=== PATIENT | male | born 1975 | race Caucasian/White ===

== ENCOUNTER 2023-04-10 19:48 | Emergency (ER) | payer BC ==
[~2023-04-10] VITALS: Ht 188 cm; Wt 117.9 kg
[~2023-04-10 19:48] MED LIST: AMLO10 PO; CYCL10 PO; LISI20 PO; Norco 5-325 Ta1 EACH PO; Valium5 MG PO
[2023-04-10 20:42] LABS: BASOPHILS ABSOLUTE AUTO 0.07 K/mm3 (0.00-0.23); BASOPHILS PERCENT AUTO 0 % (0-2); EOSINOPHILS ABSOLUTE AUTO 0.14 K/mm3 (0.00-0.68); EOSINOPHILS PERCENT AUTO 1 % (0-6); Hematocrit 44.8 % (37.0-53.0); Hemoglobin 15.9 g/dL (13.5-17.5); IMMATURE GRAN ABSOLUTE AUTO 0.08 K/mm3 (0.00-0.10); IMMATURE GRAN PERCENT AUTO 1 % (0-1); LYMPHOCYTES PERCENT AUTO 10 % (21-46); MONOCYTES ABSOLUTE AUTO 1.93 K/mm3 (0.16-1.47); MONOCYTES PERCENT AUTO 12 % (4-13); Mean Corpuscular HGB 29.9 pg (26.0-34.0); Mean Corpuscular HGB Conc 35.5 g/dL (31.5-36.5); Mean Corpuscular Volume 84 fL (80-100); Mean Platelet Volume 10.1 fL (9.1-12.4); NEUTROPHILS ABSOLUTE AUTO 12.47 K/mm3 (1.96-9.15); NEUTROPHILS PERCENT AUTO 77 % (41-73); Platelet Count 262 K/mm3 (150-400); RDW Coefficient Variation 12.8 % (11.7-14.2); RDW Standard Deviation 38.7 fL (35.1-46.3); Red Blood Cell Count 5.32 M/mm3 (4.30-5.90); White Blood Cell Count 16.29 K/mm3 (4.00-11.30)
[2023-04-10 21:02] LABS: Albumin, Blood 3.9 g/dL (3.4-5.0); Bilirubin, Total 0.5 mg/dL (0.1-1.0); Bun/Creatinine Ratio 15.8 (12.0-20.0); Calcium, Blood 10.2 mg/dL (8.5-10.1); Creatinine, Blood 0.82 mg/dL (0.60-1.20); Globulin, Blood 3.8 g/dL (2.2-4.0); Potassium, Blood 3.8 mmol/L (3.5-5.5); Total Protein, Blood 7.7 g/dL (6.4-8.2)
[2023-04-11] MEDS ORDERED: HYDCHL25 PO (00:11)
[2023-04-11 01:15] VITALS: BP 112/63
== END 2023-04-11 01:37 | disposition home or self-care (01) ==
LOC: ER 19:48
PROVIDERS: Physician Assistant
DX: R10.11 Right upper quadrant pain (principal); I10 Essential (primary) hypertension; J45.909 Unspecified asthma, uncomplicated; Z79.899 Other long term (current) drug therapy
CPT/HCPCS: 76705; 80053; 83690; 84484; 85025; 93005; 93010; 96374; 96375; 99284-25; J1885; J2405

== ENCOUNTER 2023-11-02 12:05 | Observation (INO) | payer BC ==
[2023-11-02] VITALS (13 sets, daily range): BP systolic 129–156; BP diastolic 76–110
[~2023-11-02] VITALS: Ht 188 cm; Wt 120.2 kg
[~2023-11-02 12:05] MED LIST changes: -ALBU90OI INH; -AMOCLA875 PO
[2023-11-02] MEDS ORDERED: Ondansetron 4 MG SoluTab MM ONE (12:50)
[2023-11-02] MEDS ORDERED: Ampicillin Sod/Sulbactam Sod 3 GM in NS 100 ML IV ONE (13:20)
[2023-11-02] MEDS ORDERED: Lactated Ringer's 1,000 ML IV SCH ×3 (13:30→16:25)
[2023-11-02] MEDS ORDERED: ALBU90OI INH ×2 (14:45)
[2023-11-02] MEDS ORDERED: Bupivacaine 0.5% HCl 5 MG/ML 30MLVIAL ONE (14:49)
[2023-11-02] MEDS ORDERED: FentaNYL Citrate 50 MCG/ML 2 ML Injection ONE ×2 (15:07→16:21)
[2023-11-02] MEDS ORDERED: Ketorolac Tromethamine 30mg Vial ONE (15:07)
[2023-11-02] MEDS ORDERED: Dexamethasone Sod Phos 10 MG/ML 1ML VIAL ONE (15:07)
[2023-11-02] MEDS ORDERED: propofoL 20 ML IV ONE (15:07)
[2023-11-02] MEDS ORDERED: Ondansetron HCl 2 MG / ML 2ML Vial ONE (15:07)
[2023-11-02] MEDS ORDERED: Rocuronium Bromide 10 MG/ML 5ML Injection IV ONE ×2 (15:07→15:54)
[2023-11-02] MEDS ORDERED: Droperidol 5 mg/2 ml Vial IV PRN (15:15)
[2023-11-02] MEDS ORDERED: HYDROmorphone HCl/Pf 1MG SYR IV PRN (15:20)
[2023-11-02] MEDS ORDERED: FentaNYL Citrate 50 MCG/ML 2 ML Injection IV PRN (15:20)
[2023-11-02] MEDS ORDERED: Albuterol 2.5 MG/3 ML VIAL INH PRN (15:20)
[2023-11-02] MEDS ORDERED: Ondansetron HCl 2 MG / ML 2ML Vial IV PRN (15:40)
[2023-11-02] MEDS ORDERED: HYDROcodone 5-APAP 325 TAB PO PRN (15:40)
[2023-11-02] MEDS ORDERED: FLU VACC QS2023-24(6MOS UP)/PF 60 MCG/0.5 ML SYRINGE IM ONE (15:40)
[2023-11-02] MEDS ORDERED: Phenylephrine HCl 100 MCG/ML-NS 10MLSYR (1MG/10ML) ONE (16:00)
[2023-11-02] MEDS ORDERED: Sugammadex Sodium 200 MG/2ML SDV (100 MG/ML) ONE (16:07)
[2023-11-02] MEDS ORDERED: Albuterol 2.5 MG/3 ML VIAL ONE (16:39)
[2023-11-02] MEDS ORDERED: Ampicillin Sod/Sulbactam Sod 3 GM in NS 100 ML IV SCH (18:00)
[2023-11-02] MEDS ORDERED: NS 100 ML IV ONE (19:00)
--- NOTE | 2023-11-02 19:24 | NUR ---
SHIFT SUMMARY PT A&OX4, VSS/RA, MAYELA PO CLD, AMB SBA, VOIDING, PAIN MANAGED, IVF/ABX PER EMAR. WILL REPORT TO ONCOMING NOC PAUL.
[2023-11-03 03:09] VITALS: BP 135/90
--- NOTE | 2023-11-03 04:30 | NUR ---
SHIFT SUMMARY POD #1 LAP APPY A&O X4, VSS, ON RA, INDEPENDENT IN ROOM, TOLERATING PO INTAKE, VOIDING WNL, PASSING GAS, PAIN WNL, LAP SITES C/D/I, INCENTIVE SPIROMETER USE ENC/DEMONSTRATED, RESTING QUIETLY IN BED, RESP UNLABORED, CALL LIGHT IN REACH
[2023-11-03 08:09] VITALS: BP 142/93
[2023-11-03] MEDS ORDERED: Lisinopril 20 MG Tab PO SCH (09:00)
[2023-11-03] MEDS ORDERED: AMOCLA875 PO ×2 (11:34)
--- NOTE | 2023-11-03 11:48 | NUR ---
PRESCRIPTION CALLED TO [facility] PER PT REQUEST.
--- NOTE | 2023-11-03 12:07 | NUR ---
DISCHARGE POD 1 LAP APPY PT TOLERATING DIET WELL, NO NAUSEA OR VOMITING. DENIES PAIN DURING SHIFT. REPORTS PASSING FLATUS AND SMALL BM. ALL INSTRUCTIONS GONE OVER WITH PATIENT. ALL QUESTIONS ANSWERED. PT DECLINED WHEELCHAIR AND AMBULATED OUT WELL.
== END 2023-11-03 12:14 | disposition home or self-care (01) ==
LOC: ER 12:05 → SURS 12:06 → ER 13:00 → SURS 15:44
PROVIDERS: ADMIT Surgery
PROC: 0DTJ0ZZ Resection of Appendix, Open Approach (ICD-10-PCS; principal; 2023-11-02 13:00)
DX: K35.80 Unspecified acute appendicitis (principal); I10 Essential (primary) hypertension; J45.909 Unspecified asthma, uncomplicated; Z79.899 Other long term (current) drug therapy
CPT/HCPCS: 96365; 99284-25; A9270; J0295; J1100; J1885; J2371; J2405; J2704; J3010; J7120

== ENCOUNTER → 2023-11-02 | Outpatient (CLI) | payer BC ==
[~2023-11-02] MED LIST changes: +ALBU90OI INH; +AMOCLA875 PO; +HYDCHL25 PO
[2023-11-02 10:34] LABS: BASOPHILS ABSOLUTE AUTO 0.06 K/mm3 (0.00-0.23); BASOPHILS PERCENT AUTO 0 % (0-2); EOSINOPHILS ABSOLUTE AUTO 0.04 K/mm3 (0.00-0.68); EOSINOPHILS PERCENT AUTO 0 % (0-6); Hemoglobin 16.9 g/dL (13.5-17.5); IMMATURE GRAN ABSOLUTE AUTO 0.08 K/mm3 (0.00-0.10); IMMATURE GRAN PERCENT AUTO 0 % (0-1); LYMPHOCYTES ABSOLUTE AUTO 1.54 K/mm3 (0.84-5.20); LYMPHOCYTES PERCENT AUTO 9 % (21-46); MONOCYTES ABSOLUTE AUTO 1.63 K/mm3 (0.16-1.47); MONOCYTES PERCENT AUTO 9 % (4-13); Mean Corpuscular HGB 29.6 pg (26.0-34.0); Mean Corpuscular HGB Conc 34.5 g/dL (31.5-36.5); Mean Corpuscular Volume 86 fL (80-100); Mean Platelet Volume 10.5 fL (9.1-12.4); NEUTROPHILS ABSOLUTE AUTO 14.81 K/mm3 (1.96-9.15); NEUTROPHILS PERCENT AUTO 82 % (41-73); Platelet Count 263 K/mm3 (150-400); RDW Standard Deviation 39.8 fL (35.1-46.3); Red Blood Cell Count 5.71 M/mm3 (4.30-5.90); White Blood Cell Count 18.16 K/mm3 (4.00-11.30)
[2023-11-02 10:42] LABS: Albumin, Blood 3.9 g/dL (3.4-5.0); Bilirubin, Total 0.7 mg/dL (0.1-1.0); Bun/Creatinine Ratio 10.6 (12.0-20.0); Calcium, Blood 9.6 mg/dL (8.5-10.1); Creatinine, Blood 0.85 mg/dL (0.60-1.20); Globulin, Blood 3.9 g/dL (2.2-4.0); Potassium, Blood 4.3 mmol/L (3.5-5.5); Total Protein, Blood 7.8 g/dL (6.4-8.2)
== END ==
LOC: LAB 10:27 → LAB SHORT 10:27
PROVIDERS: Chiropractor
DX: R10.13 Epigastric pain (principal)
CPT/HCPCS: 80053; 83690; 85025

== ENCOUNTER → 2024-10-06 | Outpatient (CLI) | payer BC ==
[~2024-10-06] MED LIST changes: +ALBU90OI INH; +AMOCLA875 PO
[2024-10-06 20:23] LABS: BASOPHILS ABSOLUTE AUTO 0.05 K/mm3 (0.00-0.23); BASOPHILS PERCENT AUTO 1 % (0-2); EOSINOPHILS PERCENT AUTO 2 % (0-6); Hematocrit 45.6 % (37.0-53.0); Hemoglobin 15.8 g/dL (13.5-17.5); IMMATURE GRAN ABSOLUTE AUTO 0.03 K/mm3 (0.00-0.10); IMMATURE GRAN PERCENT AUTO 1 % (0-1); LYMPHOCYTES ABSOLUTE AUTO 2.16 K/mm3 (0.84-5.20); LYMPHOCYTES PERCENT AUTO 34 % (21-46); MONOCYTES ABSOLUTE AUTO 0.75 K/mm3 (0.16-1.47); MONOCYTES PERCENT AUTO 12 % (4-13); Mean Corpuscular HGB 29.7 pg (26.0-34.0); Mean Corpuscular HGB Conc 34.6 g/dL (31.5-36.5); Mean Corpuscular Volume 86 fL (80-100); Mean Platelet Volume 10.3 fL (9.1-12.4); NEUTROPHILS ABSOLUTE AUTO 3.33 K/mm3 (1.96-9.15); NEUTROPHILS PERCENT AUTO 52 % (41-73); Platelet Count 223 K/mm3 (150-400); RDW Standard Deviation 40.8 fL (35.1-46.3); Red Blood Cell Count 5.32 M/mm3 (4.30-5.90); White Blood Cell Count 6.42 K/mm3 (4.00-11.30)
[2024-10-06 20:46] LABS: Alanine Aminotransfer (ALT/SGP 34 U/L (12-78); Albumin, Blood 3.8 g/dL (3.4-5.0); Albumin/Globulin Ratio 1.2 (0.8-1.8); Alk Phos 100 U/L (50-136); Anion Gap 11 mmol/L (3-11); Aspartate Aminotrans (AST/SGOT 23 U/L (12-37); Bilirubin, Total 0.8 mg/dL (0.1-1.0); Blood Urea Nitrogen 18 mg/dL (8-24); CO2, Blood 26 mmol/L (21-32); Calcium, Blood 9.6 mg/dL (8.5-10.1); Chloride, Blood 109 mmol/L (98-108); Cholesterol 158 mg/dL (50-200); Globulin, Blood 3.3 g/dL (2.2-4.0); Glucose, Blood 106 mg/dL (70-99); HDL Cholesterol 40 mg/dL (>39); LDL/HDL RATIO 2.6; Low Density Lipoprotein Chol 104 mg/dL (0-110); Potassium, Blood 3.9 mmol/L (3.5-5.5); Sodium, Blood 142 mmol/L (136-145); Total Protein, Blood 7.1 g/dL (6.4-8.2); Triglycerides 72 mg/dL (30-160); Very Low Density Lipoprot Chol 14 mg/dL (6-32)
[2024-10-06 20:53] LABS: Bun/Creatinine Ratio 20.1 (12.0-20.0); Creatinine, Blood 0.89 mg/dL (0.60-1.20); Glomerular Filtration Rate 105 (60-)
== END | disposition home or self-care (01) ==
LOC: LAB SHORT 20:16
PROVIDERS: Physician Assistant
DX: E78.5 Hyperlipidemia, unspecified (principal); I10 Essential (primary) hypertension; R73.03 Prediabetes
CPT/HCPCS: 80053; 80061; 83036; 85025

== ENCOUNTER 2025-08-17 06:16 | Day surgery (SDC) | payer BC ==
[2025-08-17] VITALS (30 sets, daily range): BP systolic 96–135; BP diastolic 67–96
[~2025-08-17] VITALS: Ht 185.4 cm; Wt 106.5 kg
--- NOTE | 2025-08-17 06:55 | NUR ---
Pre-Op teaching done. Pt verbalizes understanding. Ambulatory in Day Surgery. History, Chart, Medications and Allergies reviewed before start of procedure. Patient confirms NPO status and agrees with scheduled surgery. Patient States Post-Procedure ride home has been arranged.
[2025-08-17] MEDS ORDERED: Ipratropium/Albuterol SulF 2.5-0.5MG/3 ML Amp INH ONE (07:05)
--- NOTE | 2025-08-17 07:54 | NUR ---
08/17/25 0754 Jose Razo CONFIRMED AND REVIEWED H&P, MEDCICATIONS, ALLERGIES, MEDICAL HISTORY, RESPIRATORY HISTORY, VITAL SIGNS, 3-LEAD EKG, CONSENTS, AND PHYSICIAN ORDERS. PATIENT CONFIRMS NPO STATUS AND AGREES WITH SCHEDULED PROCEDURE. MONITOR INTACT WITH CONTINUOUS PULSE OXIMETRY, CAPNOGRAPHY, 3-LEAD EKG, INTERMITTENT BP. SUPPLEMENTAL O2 TO BE TITRATED THROUGHOUT PROCEDURE TO MAINTAIN O2 SATURATION ABOVE 90%. PATIENT DETERMINED TO BE ASA APPROPRIATE FOR PROPOFOL SEDATION PRIOR TO START OF PROCEDURE BY DR. [email or web address].PINK LOANER SCOPE USED FOR PROCEDURE [id number].
[2025-08-17] MEDS ORDERED: Glycopyrrolate 0.2 MG/ML 1MLVIAL ONE (08:22)
--- NOTE | 2025-08-17 09:18 | NUR ---
Patient States Post-Procedure ride home has been arranged. Discharged via wheelchair to private car for ride home. Discharge instructions reviewed with patient. Patient verbalizes understanding. Copy given to patient to take home.
== END 2025-08-17 23:00 | disposition home or self-care (01) ==
LOC: ORSCMMR 06:16 → ORD 07:30 → ORSCMMR 23:00
PROVIDERS: Family Medicine
PROC: 0DBP8ZX Excision of Rectum, Via Natural or Artificial Opening Endoscopic, Diagnostic (ICD-10-PCS; principal; 2025-08-17 07:30)
DX: Z12.11 Encounter for screening for malignant neoplasm of colon (principal); K62.1 Rectal polyp; K57.30 Diverticulosis of large intestine without perforation or abscess without bleeding; I10 Essential (primary) hypertension; F32.A Depression, unspecified; E66.9 Obesity, unspecified; Z68.30 Body mass index [BMI] 30.0-30.9, adult; J45.909 Unspecified asthma, uncomplicated; Z79.899 Other long term (current) drug therapy; F17.210 Nicotine dependence, cigarettes, uncomplicated
CPT/HCPCS: 88305; J2704; J7120